=== PATIENT | male | born 1970 | race Two or more races ===

== ENCOUNTER 2025-07-08 13:02 | Emergency (ER) | payer OTHER ==
[~2025-07-08] VITALS: Ht 177.8 cm; Wt 88.5 kg
[2025-07-08] MEDS ORDERED: COZAAR100 MG PO (13:32)
[2025-07-08] MEDS ORDERED: COMPANION TABL0.4 MG PO (13:32)
[2025-07-08] MEDS ORDERED: PRILOSEC OTC20 MG (13:33)
[2025-07-08] MEDS ORDERED: CHLORPROMAZINE HCL 25 MG/ML AMPUL IM ONE (16:00)
[2025-07-08] MEDS ORDERED: FAMOTIDINE/PF 20 MG/2 ML VIAL IV ONE (16:00)
[2025-07-08] MEDS ORDERED: CHLORPROMAZINE HCL 25 MG TABLET PO STA (16:39)
[2025-07-08] MEDS ORDERED: METOCLOPRAMIDE HCL 5 MG/ML VIAL IM ONE (18:00)
== END 2025-07-08 18:24 ==
LOC: ER 13:02
DX: R06.6 Hiccough (principal); I10 Essential (primary) hypertension